=== PATIENT | female | born 1965 ===

== ENCOUNTER 2022-11-01 05:44 | Day surgery (SDC) | payer OTHER ==
[~2022-11-01] VITALS: Ht 160 cm; Wt 93.0 kg
== END 2022-11-01 15:00 | disposition home or self-care (01) ==
LOC: CIR.AMB 05:44
PROVIDERS: ATTEND Obstetrics & Gynecology
DX: N84.0 Polyp of corpus uteri (principal); D25.0 Submucous leiomyoma of uterus; Z88.0 Allergy status to penicillin; Z20.822 Contact with and (suspected) exposure to COVID-19; E11.9 Type 2 diabetes mellitus without complications

== ENCOUNTER 2023-01-31 05:55 | Day surgery (SDC) | payer OTHER ==
[~2023-01-31] VITALS: Ht 160 cm; Wt 95.3 kg
[~2023-01-31 05:55] MED LIST: OZEMPIC0.25 MG/0.
[2023-01-31] MEDS ORDERED: DICLOFENAC POTA50 MG PO (13:50)
== END 2023-01-31 18:10 | disposition home or self-care (01) ==
LOC: CIR.AMB 05:55
PROVIDERS: ATTEND Obstetrics & Gynecology
DX: D25.0 Submucous leiomyoma of uterus (principal); N95.0 Postmenopausal bleeding; Z20.822 Contact with and (suspected) exposure to COVID-19; Z88.0 Allergy status to penicillin; I10 Essential (primary) hypertension